=== PATIENT | female | born 1965 | race Caucasian/White ===

== ENCOUNTER 2024-05-18 00:12 | Emergency (ER) | payer MEDICAID, OTHER ==
[~2024-05-18] VITALS: Ht 160 cm; Wt 74.8 kg
[2024-05-18] MEDS ORDERED: ONDANSETRON HCL/PF 4 MG/2 ML VIAL ONE ×2 (00:45→03:24)
[2024-05-18] MEDS ORDERED: FAMOTIDINE/PF INJ 20 MG/2 ML VIAL IV ONE (00:45)
[2024-05-18 01:02] LABS: APPEARANCE,URINE CLEAR (CLEAR); BILIRUBIN,URINE NEGATIVE (NEGATIVE); BLOOD, URINE NEGATIVE Ery/uL (NEGATIVE); COLOR,URINE YELLOW (YELLOW); KETONES,URINE 1+ mg/dL (NEGATIVE); LEUKOCYTE ESTERASE ,URINE 2+ (NEGATIVE); NITRITE, URINE NEGATIVE (NEGATIVE); PROTEIN,URINE NEGATIVE (NEGATIVE); UGLUCOSE NEGATIVE (NEGATIVE); UROBILINOGEN,URINE 0.2 EU/dL (0.2)
[2024-05-18 01:10] LABS: ADD URINE CULTURE YES; BACTERIA,URINE Few /HPF (None Seen); SQUAMOUS EPITHELIAL CELL,UR Rare /HPF (None Seen)
[2024-05-18 01:20] LABS: BASOPHILS % (AUTO) 0.3 % (0.0-2.0); EOSINOPHILS % (AUTO) 0.5 % (0.0-6.0); HEMATOCRIT 42 % (33-45); HEMOGLOBIN 13.7 g/dL (11.5-14.8); LYMPHOCYTES # (AUTO) 1.2 K/uL (0.8-4.8); MEAN CORPUSCULAR HEMOGLOBIN 29 PG (26.0-33.0); MEAN CORPUSCULAR HGB CONC 33 g/dl (31.0-36.0); MEAN CORPUSCULAR VOLUME 88 fL (82-100); MONOCYTES # (AUTO) 0.3 K/uL (0.1-1.30); MONOCYTES % (AUTO) 2.8 % (2.0-12.0); NEUTROPHILS # (AUTO) 7.8 K/uL (1.8-8.9); NEUTROPHILS % (AUTO) 83.4 % (43.0-81.0); PLATELET COUNT (AUTO) 275 K/uL (150-450); RED BLOOD CELL COUNT(AUTO) 4.76 MIL/uL (4.0-5.2); RED CELL DISTRIBUTION WIDTH 14.5 % (11.5-15.0); WHITE BLOOD COUNT (AUTO) 9.4 K/uL (4.3-11.0)
[2024-05-18] MEDS: ONDANSETRON HCL/PF 4 MG/2 ML VIAL IVP ONE (01:24)
[2024-05-18] MEDS: IV NS 0.9% 1,000 ML BAG IV ONE (01:24)
[2024-05-18] MEDS: FAMOTIDINE/PF INJ 20 MG/2 ML VIAL IV ONE (01:24)
[2024-05-18] MEDS ORDERED: METOCLOPRAMIDE HCL 10 MG/2 ML VIAL ONE (01:25)
[2024-05-18 01:30] LABS: CALCIUM, SERUM 9.1 mg/dL (8.5-10.1); CARBON DIOXIDE 19 mmol/L (21-32); CHLORIDE 99 mmol/L (98-107); CREATININE 0.7 mg/dL (0.6-1.3); GLUCOSE 113 mg/dL (74-106); POTASSIUM 4.2 mmol/L (3.5-5.1); SODIUM SERUM 135 mmol/L (136-145); UREA NITROGEN, BLOOD 6 mg/dL (7-18)
[2024-05-18] MEDS: METOCLOPRAMIDE HCL 10 MG/2 ML VIAL IV ONE (01:36)
[2024-05-18] MEDS ORDERED: MORPHINE SULFATE INJ 4 MG/ML DISP.SYRIN ONE (01:38)
[2024-05-18] MEDS: MORPHINE SULFATE INJ 2 MG/ML DISP.SYRIN IV ONE (01:42)
[2024-05-18 01:44] LABS: ALANINE AMINOTRANSFERASE 20 U/L (12-78); ALBUMIN 4.1 g/dL (3.4-5.0); ALKALINE PHOSPHATASE 75 U/L (46-116); ASPARTATE AMINOTRANSFERASE 16 U/L (15-37); BILIRUBIN,DIRECT 0.1 mg/dL (0.0-0.2); BILIRUBIN,TOTAL 0.4 mg/dL (0.2-1.0); LIPASE 33 U/L (16-77); TOTAL PROTEIN, SERUM 7.9 g/dL (6.4-8.2)
[2024-05-18] MEDS ORDERED: MAG HYDROX/AL HYDROX/SIMETH 30 ML UDC ONE (02:52)
[2024-05-18] MEDS ORDERED: LIDOCAINE VISCOUS 2% UD 15 ML UDC ONE (02:53)
[2024-05-18] MEDS: LIDOCAINE VISCOUS 2% UD 15 ML UDC MM ONE (03:22)
[2024-05-18] MEDS: MAG HYDROX/AL HYDROX/SIMETH 30 ML UDC PO ONE (03:22)
[2024-05-18] MEDS: ONDANSETRON HCL/PF - ER 4 MG/2 ML VIAL IV ONE (03:29)
[2024-05-18] MEDS ORDERED: CEPH500C2 PO (04:34)
[2024-05-18] MEDS ORDERED: ONDA4TAB11 PO (04:34)
[2024-05-18 07:04] VITALS: BP 145/90; TEMP 98; O2SAT 99
== END 2024-05-18 07:05 | disposition home or self-care (01) ==
LOC: ER 00:23
DX: N39.0 Urinary tract infection, site not specified (principal); R11.2 Nausea with vomiting, unspecified; R07.9 Chest pain, unspecified; R10.9 Unspecified abdominal pain; R06.02 Shortness of breath
CPT/HCPCS: 99285; 74176; 96374; 96375; 71045; 96361; 93005; 96376; 85025; 80048; 83690; 80076; 81001; 36415; 84484 ×2; J2270; J3490; J2765; J2405 ×3; J7030

== ENCOUNTER 2024-05-18 09:57 | Emergency (ER) | payer MEDICAID, OTHER ==
[~2024-05-18] VITALS: Ht 152.4 cm; Wt 70.3 kg
[~2024-05-18 09:57] MED LIST: CEPH500C2 PO; ONDA4TAB11 PO
[2024-05-18] MEDS ORDERED: HALOPERIDOL LACTATE INJ 5 MG/ML VIAL ONE (10:49)
[2024-05-18] MEDS ORDERED: ONDANSETRON 4 MG TAB.RAPDIS ONE (10:50)
[2024-05-18] MEDS: HALOPERIDOL LACTATE INJ 5 MG/ML VIAL IM ONE (10:53)
[2024-05-18] MEDS: ONDANSETRON 4 MG TAB.RAPDIS SL ONE (10:53)
[2024-05-18 11:05] VITALS: BP 142/84; TEMP 98; O2SAT 98
== END 2024-05-18 11:05 | disposition home or self-care (01) ==
LOC: ER 09:59
DX: N39.0 Urinary tract infection, site not specified (principal); R11.2 Nausea with vomiting, unspecified
CPT/HCPCS: 99283; 96372; J1630; Q0162